=== PATIENT | female | born 1975 | race Caucasian/White ===

== ENCOUNTER 2024-03-09 08:24 | Emergency (ER) | payer OTHER, SELFPAY ==
[2024-03-09 08:25] VITALS: BP 170/104; PULSE 88; RESP 14; TEMP 36.4; O2SAT 98; BMI 33.8
--- NOTE | 2024-03-09 08:27 | NURSING ---
NO OLD EKGS
--- NOTE | 2024-03-09 08:46 | US_ITS ---
INDICATION: PAIN EXAMINATION: Ultrasound US Abdomen Limited (quadrant) TECHNIQUE: Zamora scale and color doppler imaging was performed of the right upper quadrant. COMPARISON: No relevant prior comparison study available FINDINGS: LIVER: There is normal echotexture. No focal hepatic lesion. There is no free fluid. GALLBLADDER AND BILIARY TREE: There is stones and sludge within the gallbladder. There is no pericholecystic fluid nor wall thickening. The proximal common bile duct measures 5.0 mm, which is within normal limits for the patient''s age. Songraphic Robles''s sign: Positive. PANCREAS: There is nonvisualization of the pancreas secondary to overlying bowel gas. RIGHT KIDNEY: The right kidney measures 11.9 cm in length. No hydronephrosis. There is a 4 mm echogenic focus within the lower pole which may reflect a stone or may be artifactual. US/Gallbladder IMPRESSION: Stones and sludge within the gallbladder and a reported positive sonographic Robles''s sign with no associated pericholecystic fluid, gallbladder wall thickening nor gallbladder distention. Nonvisualization of the pancreas secondary to overlying bowel gas. Electronically Signed: Kay Smith MD at 10:50 EDT ,
--- NOTE | 2024-03-09 08:46 | EKG12_ITS ---
Test Reason : CP Blood Pressure : / mmHG Vent. Rate : 089 BPM Atrial Rate : 089 BPM P-R Int : 192 ms QRS Dur : 084 ms QT Int : 360 ms P-R-T Axes : 010 006 008 degrees QTc Int : 438 ms Normal sinus rhythm Normal ECG Confirmed by Bryan Hickman ([id number]), slot editor JOLYNN LALA ([id number]) on 03/11/2024 10:29:35 AM Referred By: FREDERICK Confirmed By:Bryan Hikcman
--- NOTE | 2024-03-09 08:48 | ED.VIS.CHEST ---
HPI History of Present Illness Chief Complaint: Chest Pain Narrative Narrative: 49-year-old female past medical history of diabetes presents with burning chest pain and abdominal pain that she has had since 4:30 in the morning. This was approximately 4 hours ago when it began. It woke her from sleep. She complains of lower chest pain down to her abdomen. She is slightly nauseated but has not vomited. No fevers or chills, no shortness of breath, no diaphoresis. States the pain was also in her back so she took ibuprofen. She thought it was indigestion so she took Tums and drink milk. She is describing more of a burning sensation then chest pressure or sharp stabbing pain. No exacerbating or alleviating factors. [facility] Medical History Diabetes Home Medications ?Medication ?Instructions ?Recorded ?Last Taken ?Type CONTROL 1 tab PO DAILY 03/09/24 Unknown History melatonin 10 mg capsule 30 mg PO QHS 03/09/24 Unknown History semaglutide 2 mg/dose (8 mg/3 mL) 2 mg subcut QWEEK 03/09/24 Unknown History subcutaneous pen injector (Ozempic) trazodone 100 mg tablet 200 mg PO QHS 03/09/24 Unknown History Allergy/AdvReac Type Severity Reaction Status Date / Time No Known Allergies Allergy Verified 03/09/24 08:29 Social History Smoking Status: Never smoker ROS ROS ED ROS Narrative Constitutional: No fever, no chills. HEENT: No sore throat. No neck pain. No loss of vision. No rhinorrhea. Cardiovascular: Positive midsternal to lower chest pain, described as burning. No palpitations. No pedal edema. Respiratory: No cough, no shortness of breath. Abdominal: Positive epigastric and right upper quadrant abdominal pain. Positive nausea. No vomiting. No problems with bowel movements. Genitourinary: No dysuria. No hematuria. Musculoskeletal: No myalgias. No arthralgias. Neurologic: No headaches. No dizziness. No lightheadedness. Skin: No rash. No change in color. Psychiatric: No depression. No anxiety. EXAM Physical Exam Narrative Exam Narrative: Afebrile. Vital signs noted. HEENT: Normocephalic. Atraumatic. PERRL, EOMI. Neck soft and supple. No point tenderness or step off. Cardiovascular: Regular rate and rhythm. No murmurs, rubs, or gallops appreciated. Respiratory: No tachypnea. Lungs clear to auscultation bilaterally. Gastrointestinal: Abdomen soft, mild tenderness to palpation in epigastrium and right upper quadrant with normoactive bowel sounds. No rebound or guarding. Neurological: Awake. Alert. Nonfocal, nonlateralizing. Skin: No rash. Normal color. No pallor. Musculoskeletal: No pedal edema. Full range of motion extremities. Const Vital Signs: 03/09/24 08:25 03/09/24 09:25 03/09/24 10:00 Temperature 97.5 F L Temperature Source Temporal Pulse Rate 88 84 81 Respiratory Rate 14 20 H 18 Blood Pressure 170/104 H 136/78 H 148/77 H Blood Pressure Mean 126 97 100 Pulse Ox 98 98 98 Oxygen Delivery Method Room Air Room Air Room Air 03/09/24 11:00 03/09/24 11:57 Temperature Temperature Source Pulse Rate 74 81 Respiratory Rate 19 H 22 H Blood Pressure 136/112 H 138/91 H Blood Pressure Mean 120 106 Pulse Ox 99 98 Oxygen Delivery Method Room Air Room Air Heart Score History: Slightly/Non-Suspicious ECG: Normal Age: >45 - <65 years Risk Factors: 1 or 2 Risk Factors Score: 2 MDM MDM MDM Narrative Medical decision making narrative: Differential diagnosis includes but not limited to ACS versus pulmonary embolism versus cholecystitis versus pancreatitis versus GERD versus esophageal spasm. I have lower suspicion for pulmonary embolism as she is afebrile, has normal pulse, and pulse ox is 98% on room air and denies risk factors. She does take control pills, but she is not having pleuritic pain. I also have lower suspicion for ACS as EKG was obtained and independently as normal sinus rhythm at 89 bpm without ectopy or acute ST changes. No STEMI. Her examination leans more towards abdominal epigastric pain and right upper quadrant pain. EKG was obtained and interpreted by myself independently as normal sinus rhythm at 89 bpm without ectopy or acute ST changes. No STEMI. In review of her laboratory work she has slightly elevated white count of 11.7 which I think is nonspecific, hemoglobin 14.4 with hematocrit 44.9, platelet count normal at 304. CMP is remarkable for creatinine slightly elevated at 1.24 which I think is nonspecific, Kos of 154 but she has normal anion gap of 7. Total bilirubin is 1.1 and she has an AST of 38 but normal ALT and alk phos normal at 73. Initial high-sensitivity troponin is 4 with repeat at 2 hours being less than 3. Hence, I feel she has been ruled out with biomarkers for ACS. Chest x-ray 1 view interpreted by myself independently shows no acute process, no pneumonia or pneumothorax. I reviewed the radiology report which confirms my independent interpretation. There was delay in crossover of the results of gallbladder ultrasound. In review, there are stones and sludge within the gallbladder and a reported positive Robles sign with no associated pericholecystic fluid gallbladder wall thickening or gallbladder distention. Hence, I do not feel that she needs to be admitted for cholecystitis. I think she is probably having more biliary colic. Repeat examination shows her abdomen to remain soft and she feels improved, stating her pain is down to a 3 or 4. She was told to start a low-fat diet. 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 I offered to write her for short course of therapy of narcotic pain medications but she declined. She states she is only visiting the area but she was referred to general surgery as an outpatient here, so that she can follow-up with a general surgeon in her hometown as well. Return instructions to the emergency department were reviewed. Patient comfortable with plan. Disposition is discharged home in stable condition. History & Record Review Discussion w/independent historian: Patient Lab Data Attestation: I reviewed the patient's lab results. Labs: Laboratory Results - last 24 hr 03/09/24 03/09/24 08:37 11:15 WBC 11.7 H RBC 4.93 Hgb 14.4 Hct 44.9 MCV 91.1 MCH 29.2 MCHC 32.1 RDW Std Deviation 48.3 H RDW Coeff of Humberto 14.5 Plt Count 304 MPV 9.9 Immature Gran % (Auto) 0.400 Neut % (Auto) 67.2 Lymph % (Auto) 25.3 Gregg % (Auto) 4.1 Eos % (Auto) 2.1 Baso % (Auto) 0.9 Absolute Neuts (auto) 7.9 H Absolute Lymphs (auto) 2.96 Nucleated RBC % 0 Sodium 136 Potassium 4.4 Chloride 107 Carbon Dioxide 22.0 Anion Gap 7 BUN 15 Creatinine 1.24 H Estim Creat Clear Calc 68.18 Est GFR (MDRD) Af Amer 59 L Est GFR (MDRD) Non-Af 49 L BUN/Creatinine Ratio 12.1 Glucose 154 H Calcium 9.2 Total Bilirubin 1.10 H AST 38 H ALT 24 Alkaline Phosphatase 73 Troponin I High Sens 4 < 3 L Total Protein 7.7 Albumin 3.1 L Globulin 4.6 H Albumin/Globulin Ratio 0.7 L Lipase 62 Serum , Qual NEGATIVE Radiography Diagnostic Testing: Clinical Impression(s) from Imaging Studies Gallbladder Ultrasound 03/09/24 08:46 IMPRESSION: Stones and sludge within the gallbladder and a reported positive sonographic Robles''s sign with no associated pericholecystic fluid, gallbladder wall thickening nor gallbladder distention. Nonvisualization of the pancreas secondary to overlying bowel gas. Electronically Signed: Kay Smith MD at 10:50 EDT , Chest X-Ray 03/09/24 09:40 IMPRESSION: No radiographic evidence of acute cardiopulmonary disease. Electronically Signed: Kay Smith MD at 9:57 EDT , Discharge Plan Triage Chief Complaint: Chest Pain ED Provider: Gage Isaac Dx/Rx/DC Orders Clinical Impression: Abdominal pain, Chest pain, Biliary colic, Gallstones Instructions: ED Chest Pain, Uncertain Cause, ED Gallstones with Biliary Colic Prescriptions: No Action CONTROL 1 tab PO DAILY Ozempic 2 mg/dose (8 mg/3 mL) pen injector 2 mg subcut QWEEK trazodone 100 mg tablet 200 mg PO QHS melatonin 10 mg capsule 30 mg PO QHS Primary Care Provider: RACIEL ONEIL Referrals: RACIEL ONEIL [Other] Krishan Nascimento MD [Med Staff - Active Staff] - 5-7 Days Activity Restrictions/Additional Instructions: Follow-up with general surgery within the next week. Return with fever, nausea and vomiting, increased pain, new or worsening symptoms. Start a low-fat diet. Continue your pantoprazole as previously directed. 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 Print Language: Latvian Disposition Disposition: Home, Self Care
[2024-03-09] MEDS: 0.9% Normal Saline (1000mL) 1,000 ML 999 ML IV (08:58)
[2024-03-09 09:16] LABS: Internal QC Validated? YES +Cl - CLEAR BKGD; Pregnancy, Serum, hCG Quali. NEGATIVE Negative
[2024-03-09 09:23] LABS: Absolute Lymphocyte Count 2.96 X10^3/uL (0.83-4.51); Absolute Neutrophil Count 7.9 X10^3/uL (2.0-7.7); Basophil% 0.9 % (0-1); Eosinophil# 0.25 X10^3/uL; Eosinophils% 2.1 % (0-5); Hematocrit 44.9 % (37-47); Hemoglobin 14.4 g/dL (12.0-15.0); Lymphocyte # 2.96 X10^3/ul (0.83-4.51); Lymphocyte % 25.3 % (19-41); Mean Corp Hgb Conc 32.1 g/dL (32-36); Mean Corpuscular Hgb 29.2 pg (27.0-32.0); Mean Corpuscular Volume 91.1 fL (81-99); Mean Platelet Vol. 9.9 fl (6.2-12.0); Monocyte# 0.48 X10^3/uL; Monocyte% 4.1 % (0-10); NRBC Flagged by Analyzer 0 % (0-5); Neutrophil # 7.86 X10^3/uL (2.7-7.7); Neutrophil % 67.2 % (47-70); Platelet Count 304 K/mm3 (150-450); RBC Distribution Width CV 14.5 % (11.6-14.6); RBC Distribution Width SD 48.3 fl (35.1-43.9); Red Blood Count 4.93 M/mm3 (4.2-5.4); White Blood Count 11.7 K/mm3 (4.4-11.0)
[2024-03-09 09:25] VITALS: BP 136/78; PULSE 84; RESP 20; O2SAT 98
--- NOTE | 2024-03-09 09:40 | RAD_ITS ---
INDICATION: CHEST PAIN EXAMINATION/TECHNIQUE: X-RAY - XR Chest 1 View COMPARISON: No relevant prior comparison study available FINDINGS: LINES/DEVICES: None. LUNGS: No consolidation, edema or effusion. No pneumothorax. MEDIASTINUM AND CARDIOVASCULAR STRUCTURES: Cardiac silhouette not enlarged. Central airways and mediastinal contour are unremarkable. BONES AND SOFT TISSUES: Unremarkable. RAD/Chest 1 View (Portable) IMPRESSION: No radiographic evidence of acute cardiopulmonary disease. Electronically Signed: Kay Smith MD at 9:57 EDT ,
[2024-03-09 09:46] LABS: ALB/GLOB Ratio 0.7 RATIO (0.9-2.4); AST(SGOT) 38 U/L (15-37); Alanine Aminotransfer ALT/SGPT 24 U/L (13-56); Albumin, Serum 3.1 g/dL (3.2-5.0); Alkaline Phosphatase 73 U/L (45-117); Anion Gap 7 (5-15); BUN 15 mg/dL (7-18); BUN/Creat Ratio 12.1 RATIO (10-20); Calcium,Total 9.2 mg/dL (8.5-10.1); Chloride 107 mmol/L (98-107); Creatinine, Serum 1.24 mg/dL (0.55-1.02); EST Glomerular Filtration Rate 49 mL/min (>60); Est Glom Filt Rate - Afr Amer 59 mL/min (>60); Estimated Creatinine Clearance 68.18 ml/min; Globulin 4.6 g/dL (2.2-4.2); Glucose 154 mg/dL (74-106); Lipase 62 U/L (13-75); Potassium 4.4 mmol/L (3.5-5.1); Protein, Total 7.7 g/dL (6.4-8.2); Sodium Level 136 mmol/L (136-145)
[2024-03-09 10:00] VITALS: BP 148/77; PULSE 81; RESP 18; O2SAT 98
[2024-03-09 10:05] LABS: Troponin-I HS (w/2H Reflex) 4 pg/mL (3.0-54.0)
[2024-03-09 11:00] VITALS: BP 136/112; PULSE 74; RESP 19; O2SAT 99
[2024-03-09 11:32] LABS: Reflex Troponin-HS? (from REC) Y
[2024-03-09 11:52] LABS: Troponin-I HS < 3 pg/mL (3.0-54.0)
[2024-03-09 11:57] VITALS: BP 138/91; PULSE 81; RESP 22; O2SAT 98
[2024-03-09] MEDS: Pantoprazole Sodium 40 MG Tablet PO (12:49)
[2024-03-09 12:55] VITALS: BP 140/71; PULSE 73; RESP 19; TEMP 36.6; O2SAT 98
== END 2024-03-09 13:02 | disposition home or self-care (01) ==
PROVIDERS: Emergency Provider Emergency Medicine; Visit Provider Emergency Medicine
DX: K80.70 Calculus of gallbladder and bile duct without cholecystitis without obstruction (principal); E11.9 Type 2 diabetes mellitus without complications; Z79.85 Long-term (current) use of injectable non-insulin antidiabetic drugs; Z79.899 Other long term (current) drug therapy
CPT/HCPCS: 71045; 76705; 80053; 83690; 84484; 84703; 85025; 93005; 99282; A4216; J2405